=== PATIENT | female | born 1965 | race Two or more races ===

== ENCOUNTER 2021-10-24 22:50 | Emergency (ER) | payer OTHER ==
[~2021-10-24] VITALS: Ht 160 cm; Wt 65.8 kg
[2021-10-25] MEDS ORDERED: TETANUS-DIPTH-ACEL PERTUSSIS 0.5ML SYR Tdap IM ONE (00:30)
[2021-10-25 02:59] VITALS: BP 138/74
== END 2021-10-25 03:02 | disposition home or self-care (01) ==
LOC: ER 22:50 → EEVIPCON 22:50 → ER 10-25 03:02
DX: S01.81XA Laceration without foreign body of other part of head, initial encounter (principal); W18.39XA Other fall on same level, initial encounter; Y93.89 Activity, other specified; Y92.89 Other specified places as the place of occurrence of the external cause; Y99.8 Other external cause status
CPT/HCPCS: 12013; 70450; 70486; 73130; 90471; 90715